=== PATIENT | male | born 1985 | race Native Hawaiian/Other Pacific Islander ===

== ENCOUNTER 2025-02-22 19:21 | Emergency (ER) | payer BC, MEDICAID, SELFPAY ==
[2025-02-22 19:22] VITALS: BMI 31.3
--- NOTE | 2025-02-22 19:29 | PD.EDADULT ---
ED General RME/HPI General Chief complaint: Flu Like Symptoms Stated complaint: COUGH AND FEELS WEAK Time Seen by Provider: 02/22/25 19:27 Arrival date/time: 02/22/25 19:21 RME / HPI RME / HPI narrative: see MDM Related Data Previous Rx's ?Medication ?Instructions ?Recorded Promethazine Hcl/Dextromethorphan 2 tsp PO Q4-6HRPRN PRN cough #180 08/06/17 SYRUP * (PHENERGAN DM SYRUP *) mL albuterol sulfate 90 mcg/actuation 2 puff inhalation Q4HR PRN cough 08/06/17 aerosol inhaler (ProAir HFA) #1 inh ibuprofen 800 mg tablet 800 mg PO TID PRN Pain or fever 08/06/17 #30 tabs ibuprofen 800 mg tablet 800 mg PO TID PRN pain #30 tabs 06/20/23 amoxicillin 875 mg-potassium 1 tab PO BID 7 days #14 tabs 02/22/25 clavulanate 125 mg tablet Allergies Allergy/AdvReac Type Severity Reaction Status Date / Time NKA* Allergy Uncoded 06/20/23 10:44 Review of Systems Review of Systems Systems Reviewed: All systems reviewed, normal except as documented ED Exam Narrative Physical exam: Physical Exam GENERAL: NAD, AAOx3, deaf communicates with rw[place] sign language HEENT: Moist mucosa. Eyes open, symmetrical, & clear CARDIO: Heart RRR, no obvious murmurs PULM: No noted coughing/dyspnea CTA B/L, no R/W/R GI: Abdomen soft, nondistended, no pain on palpation. BSx4 SKIN/MSK/EXT: No wounds/rashes/edema/amputations, no pain on palpation. Pedal pulses present B/L NEURO: AAOx3, no focal neuro deficits, able to move all 4 extremities Course Quality Measures none Orders Category Date Time Status Bedside COVID-19 Antigen Test NOW Care 02/22/25 19:46 Active Bedside Influenza A&B Antigen Test NOW Care 02/22/25 19:54 Completed CXR2 [XR chest 2V] Stat Exams 02/22/25 19:46 Completed Vital Signs Vital signs: Vital Signs Temperature 99.3 F 02/22/25 19:42 Pulse Rate 118 H 02/22/25 19:42 Respiratory Rate 20 02/22/25 19:42 Blood Pressure 163/83 H 02/22/25 19:42 Pulse Oximetry (%) 96 02/22/25 19:42 Oxygen Delivery Method Room Air 02/22/25 19:42 Discharge Plan Plan Patient Disposition: HOME (Self Care) Prescriptions/Referrals Prescriptions/Med Rec: New amoxicillin-pot clavulanate 875-125 mg tablet 1 tab PO BID 7 Days Qty: 14 0RF No Action ibuprofen 800 MG tablet 800 mg PO TID PRN (Reason: Pain or fever) Qty: 30 0RF albuterol sulfate [ProAir HFA] 8.5 GM HFA aerosol inhaler 2 puff Inhalation Q4HR PRN (Reason: cough) Qty: 1 0RF Promethazine Hcl/Dextromethorphan SYRUP * (PHENERGAN DM SYRUP *) 473 ML syrup 2 tsp PO Q4-6HRPRN PRN (Reason: cough) Qty: 180 0RF ibuprofen 800 mg tablet 800 mg PO TID PRN (Reason: pain) Qty: 30 0RF Referrals: No Primary/Family,Physician [Primary Care Provider] - In 1 week Problem List Clinical Impression: Lower resp. tract infection Patient/Caregiver Discharge Instructions Additional Instructions: 1) Please see your private doctor in regards to switching your lisinopril to a different hypertension medication as this could be exacerbating your cough causing you to vomit 2) You have been prescribed antibiotics Augmentin for Lower respiratory tract infection for 7 days. Please take as prescribed 3) Should any symptoms recur or worsen patient is instructed to return to the ED. 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 He states hes had this cough for approximetely 2 months comes on and off every 2 weeks. Some fever and chills also endorsed. he states the cough is so bad that vomitted this morning during one of the coughing fits. 1946: CXR, covid, flu swabs ordered 2049: swabs negative, CXR pending read 2123: was prescribed Augmentin for total of 7 days Patient at [facility] time is safe for discharge. Instructions explained and instructed that should his symptoms worsen patient can return to the ED. 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
[2025-02-22 19:42] VITALS: BP 163/83; PULSE 118; RESP 20; TEMP 37.4; O2SAT 96
--- NOTE | 2025-02-22 19:46 | XR_ITS ---
Examination: PA lateral chest 2 views TECHNIQUE: Upright PA lateral chest 2 views Date and time: February 22, 2025 1958 hours INDICATIONS: Chest pain shortness of breath today. FINDINGS: Bibasilar pneumonia. Normal heart size Intact osseous structures IMPRESSION: Bibasilar pneumonia
== END 2025-02-22 21:24 | disposition home or self-care (01) ==
PROVIDERS: Emergency Provider Emergency Medicine
DX: J22 Unspecified acute lower respiratory infection (principal)
CPT/HCPCS: 71046; 87400; 87502; 87811; 99283